=== PATIENT | female | born 1990 | race African-American/Black ===

== ENCOUNTER 2019-01-14 21:14 | Emergency (ER) | payer BC ==
[~2019-01-14] VITALS: Ht 162.6 cm; Wt 126.1 kg
[2019-01-14 23:19] LABS: BASO % 1 % (0-3); EOS # 0.2 x10^3/uL (0.0-0.7); EOS % 2 % (0-3); HEMATOCRIT 28.9 % (36.0-47.0); HEMOGLOBIN 8.7 g/dL (12.0-15.5); LYMPH # 2.4 x10^3/uL (1.0-4.8); LYMPH % 30 % (24-48); MEAN CORPUSCULAR HEMOGLOBIN 21 pg (25-35); MEAN CORPUSCULAR HGB CONC 30 g/dL (31-37); MEAN CORPUSCULAR VOLUME 68 fL (79-100); MONO # 0.8 x10^3/uL (0.0-1.1); MONO % 9 % (0-9); NEUT # 4.8 x10^3uL (1.8-7.7); NEUT % 59 % (31-73); PLATELET COUNT 238 x10^3/uL (140-400); RED BLOOD COUNT 4.24 x10^6/uL (3.50-5.40); RED CELL DISTRIBUTION WIDTH 19.8 % (11.5-14.5); WHITE BLOOD COUNT 8.2 x10^3/uL (4.0-11.0)
[2019-01-14 23:23] LABS: BILIRUBIN,URINE NEGATIVE (NEG); CLARITY,URINE CLEAR; COLOR,URINE YELLOW; NITRITE,URINE NEGATIVE (NEG); PROTEIN,URINE NEGATIVE (NEG-TRACE); UROBILINOGEN,URINE 0.2 mg/dL (0.2 mg/dL)
[2019-01-14 23:30] LABS: BACTERIA,URINE FEW /HPF (0-FEW); RBC,URINE 0 /HPF (0-2); SQUAMOUS EPITHELIAL CELL,UR FEW /LPF; WBC,URINE OCC /HPF (0-4); YEAST,URINE PRESENT /HPF
[2019-01-14 23:32] LABS: CALCIUM 8.7 mg/dL (8.5-10.1); CREATININE 0.6 mg/dL (0.6-1.0); GFR 145.1; POTASSIUM 3.5 mmol/L (3.5-5.1)
[2019-01-14 23:37] LABS: ALBUMIN 3.2 g/dL (3.4-5.0); ALBUMIN/GLOBULIN RATIO 0.8 (1.0-1.7); MAGNESIUM 1.9 mg/dL (1.8-2.4); TOTAL BILIRUBIN 0.2 mg/dL (0.2-1.0); TOTAL PROTEIN 7.2 g/dL (6.4-8.2)
[2019-01-14 23:39] LABS: PLT ESTIMATE ADEQUATE (ADEQUATE)
[2019-01-14 23:42] LABS: ANISOCYTOSIS SLIGHT; HYPOCHROMIA MOD; MICROCYTOSIS MARKED; OVALOCYTES OCC; SPHEROCYTES OCC; TEAR DROP CELLS OCC
[2019-01-14] MEDS: IV NORMAL SALINE 1000ML BAG 1,000 ML IV SCH (23:48)
[2019-01-14] MEDS: KETOROLAC 30 MG/ML VIAL. IV ONE (23:49)
--- NOTE | 2019-01-15 00:13 | PHYS DOC ---
Past Medical History Past Medical History: Other Additional Past Medical Histor: Myasthenia Gravis Past Surgical History: Alcohol Use: None Drug Use: Marijuana Adult General Chief Complaint Chief Complaint: CHEST PAIN HPI HPI Patient is a 28-year-old female who presents with complaint of left-sided chest pain that radiated into her left axilla. She describes pain as sharp and stabbing in nature. She indicates the pain gets a little bit worse with deep breathing. She states the pain started earlier this morning while she was at work and then had gone away. She states that upon getting home that the pain had recurred. She rates pain currently at a 5 out of 10 but states that at its worse it was an 8 out of 10. She does admit to a dry cough. Review of Systems Review of Systems Constitutional: Denies fever or chills [] Respiratory: Admits to cough and mild shortness of breath [] Cardiovascular: No additional information not addressed in HPI [] GI: Denies abdominal pain, nausea, vomiting or diarrhea [] Musculoskeletal: Denies back pain or joint pain [] Integument: Denies rash or skin lesions [] Neurologic: Denies headache, focal weakness or sensory changes [] All other systems were reviewed and found to be within normal limits, except as documented in this note. Current Medications Current Medications Current Medications Medications (Trade) Dose Ordered Sig/Claudette Start Time Stop Time Status Last Admin Dose Admin Info (CONTRAST GIVEN -- Rx MONITORING) 1 each PRN DAILY PRN 01/15/19 00:30 01/17/19 00:29 Iohexol (Omnipaque 350 Mg/ml) 100 ml 1X ONCE 01/15/19 00:30 01/15/19 00:31 DC 01/15/19 00:38 100 ML Ketorolac Tromethamine (Toradol 30mg Vial) 30 mg 1X ONCE 01/14/19 22:30 01/14/19 22:32 DC 01/14/19 23:49 30 MG Sodium Chloride 1,000 ml @ 1,000 mls/hr Q1H 01/14/19 22:30 01/14/19 23:29 DC 01/14/19 23:48 1,000 MLS/HR Allergies Allergies Allergies Coded Allergies Type Severity Reaction Last Updated Verified No Known Drug Allergies 01/14/19 No Physical Exam Physical Exam Constitutional: Well developed, well nourished, no acute distress, non-toxic appearance. [] HENT: Normocephalic, atraumatic, bilateral external ears normal, oropharynx moist, no oral exudates, nose normal. [] Eyes: PERRLA, EOMI, conjunctiva normal, no discharge. [] Neck: Normal range of motion, no tenderness, supple, no stridor. [] Cardiovascular: Regular rate and rhythm[] Lungs & Thorax: Bilateral breath sounds clear to auscultation [] Abdomen: Bowel sounds normal, soft, no tenderness. [] Skin: Warm, dry, no erythema, no rash. [] Extremities: No tenderness, no cyanosis, no clubbing, ROM intact. [] Neurologic: Alert and oriented X 3, no focal deficits noted. [] Current Patient Data Vital Signs Vital Signs Date Time Temp Pulse Resp B/P (MAP) Pulse Ox O2 Delivery O2 Flow Rate FiO2 01/15/19 00:37 72 18 118/48 (71) 100 Room Air 01/14/19 21:25 97.7 97.7 Lab Values Laboratory Tests Test 01/14/19 23:14 01/14/19 23:15 01/14/19 23:17 White Blood Count 8.2 x10^3/uL (4.0-11.0) Red Blood Count 4.24 x10^6/uL (3.50-5.40) Hemoglobin 8.7 g/dL (12.0-15.5) L Hematocrit 28.9 % (36.0-47.0) L Mean Corpuscular Volume 68 fL (79-100) L Mean Corpuscular Hemoglobin 21 pg (25-35) L Mean Corpuscular Hemoglobin Concent 30 g/dL (31-37) L Red Cell Distribution Width 19.8 % (11.5-14.5) H Platelet Count 238 x10^3/uL (140-400) Neutrophils (%) (Auto) 59 % (31-73) Lymphocytes (%) (Auto) 30 % (24-48) Monocytes (%) (Auto) 9 % (0-9) Eosinophils (%) (Auto) 2 % (0-3) Basophils (%) (Auto) 1 % (0-3) Neutrophils # (Auto) 4.8 x10^3uL (1.8-7.7) Lymphocytes # (Auto) 2.4 x10^3/uL (1.0-4.8) Monocytes # (Auto) 0.8 x10^3/uL (0.0-1.1) Eosinophils # (Auto) 0.2 x10^3/uL (0.0-0.7) Basophils # (Auto) 0.0 x10^3/uL (0.0-0.2) Platelet Estimate Adequate (ADEQUATE) Hypochromasia Mod Anisocytosis Slight Microcytosis Marked Spherocytes Occ Tear Drop Cells Occ Ovalocytes Occ D-Dimer (Juanita) 1.08 ug/mlFEU (0.00-0.50) H Sodium Level 141 mmol/L (136-145) Potassium Level 3.5 mmol/L (3.5-5.1) Chloride Level 103 mmol/L (98-107) Carbon Dioxide Level 31 mmol/L (21-32) Anion Gap 7 (6-14) Blood Urea Nitrogen 9 mg/dL (7-20) Creatinine 0.6 mg/dL (0.6-1.0) Estimated GFR (Cockcroft-Gault) 145.1 BUN/Creatinine Ratio 15 (6-20) Glucose Level 106 mg/dL (70-99) H Calcium Level 8.7 mg/dL (8.5-10.1) Magnesium Level 1.9 mg/dL (1.8-2.4) Total Bilirubin 0.2 mg/dL (0.2-1.0) Aspartate Amino Transferase (AST) 18 U/L (15-37) Alanine Aminotransferase (ALT) 24 U/L (14-59) Alkaline Phosphatase 63 U/L (46-116) Troponin I Quantitative < 0.017 ng/mL (0.000-0.055) RE-Npd-J-Type Natriuretic Peptide 50 pg/mL (0-124) Total Protein 7.2 g/dL (6.4-8.2) Albumin 3.2 g/dL (3.4-5.0) L Albumin/Globulin Ratio 0.8 (1.0-1.7) L Lipase 100 U/L (73-393) Urine Collection Type Unknown Urine Color Yellow Urine Clarity Clear Urine pH 6.0 Urine Specific Atkins 1.010 Urine Protein Negative mg/dL (NEG-TRACE) Urine Glucose (UA) Negative mg/dL (NEG) Urine Ketones (Stick) Negative mg/dL (NEG) Urine Blood Negative (NEG) Urine Nitrite Negative (NEG) Urine Bilirubin Negative (NEG) Urine Urobilinogen Dipstick 0.2 mg/dL (0.2 mg/dL) Urine Leukocyte Esterase Negative (NEG) Urine RBC 0 /HPF (0-2) Urine WBC Occ /HPF (0-4) Urine Squamous Epithelial Cells Few /LPF Urine Bacteria Few /HPF (0-FEW) Urine Mucus Slight /LPF Urine Yeast Present /HPF POC Urine HCG, Qualitative Hcg negative (Negative) Laboratory Tests 01/14/19 23:14 Laboratory Tests 01/14/19 23:14 EKG EKG [] Interpretation Time: EKG demonstrates normal sinus rhythm with rate of 61. Radiology/Procedures Radiology/Procedures [] Impressions: Chest x-ray demonstrates no acute process. PROCEDURE: CT ANGIOGRAPHY CHEST INDICATION: chest pain, eval for pe; Omni 350, 100ml COMPARISON: Chest x-ray from January 2013 TECHNIQUE: Axial CT images obtained through the chest. Intravenous contrast utilized. Angiogram 3D images processed per protocol. One or more of the following individualized dose reduction techniques were utilized for this examination: 1. Automated exposure control; 2. Adjustment of the mA and/or kV according to patient size; 3. Use of iterative reconstruction technique. FINDINGS: Some limitation secondary to motion. No evidence of pneumothorax. Mild dependent probable atelectasis. No focal airspace consolidation to suggest pneumonia. Soft tissue density anterior mediastinum which could be from residual thymus. A ascending thoracic aorta is obscured by motion and not evaluated. No aneurysm within the descending thoracic aorta. IMPRESSION: No central pulmonary embolus. Limited peripherally by motion. no definite evidence of pneumonia Electronically signed by: Kofi Abdul MD (01/15/2019 1:03 AM) [facility] Course & Med Decision Making Course & Med Decision Making Pertinent Labs and Imaging studies reviewed. (See chart for details) [] Dragon Disclaimer Dragon Disclaimer This electronic medical record was generated, in whole or in part, using a voice recognition dictation system. Departure Departure Impression: Primary Impression: Chest wall pain Disposition: 01 HOME, SELF-CARE Condition: STABLE Referrals: NO PCP (PCP) Patient Instructions: Chest Wall Pain Scripts Ketorolac Tromethamine (KETOROLAC TROMETHAMINE) 10 Mg Tablet 1 TAB PO PRN Q6HRS PRN for PAIN, #20 TAB Prov: MYRON LOPEZ Jr. DO 01/15/19 Tramadol Hcl (TRAMADOL HCL) 50 Mg Tablet 50 MG PO Q6HRS PRN for PAIN, #12 TAB Prov: MYRON LOPEZ Jr. DO 01/15/19 MYRON LOPEZ Jr. DO Jan 15, 2019 00:13
[2019-01-15] MEDS ORDERED: CONTRAST GIVEN. MC PRN (00:30)
[2019-01-15] MEDS: IOHEXOL 350 MG/ML 100 ML VIAL. IV ONE (00:38)
--- NOTE | 2019-01-15 01:06 | RAD ---
INDICATION: chest pain, eval for pe; Omni 350, 100ml COMPARISON: Chest x-ray from January 2013 TECHNIQUE: Axial CT images obtained through the chest. Intravenous contrast utilized. Angiogram 3D images processed per protocol. One or more of the following individualized dose reduction techniques were utilized for this examination: 1. Automated exposure control; 2. Adjustment of the mA and/or kV according to patient size; 3. Use of iterative reconstruction technique. FINDINGS: Some limitation secondary to motion. No evidence of pneumothorax. Mild dependent probable atelectasis. No focal airspace consolidation to suggest pneumonia. Soft tissue density anterior mediastinum which could be from residual thymus. A ascending thoracic aorta is obscured by motion and not evaluated. No aneurysm within the descending thoracic aorta. IMPRESSION: No central pulmonary embolus. Limited peripherally by motion. no definite evidence of pneumonia Electronically signed by: Kofi Abdul MD (01/15/2019 1:03 AM) [facility]
[2019-01-15 01:37] VITALS: BP 153/75
[2019-01-15] MEDS ORDERED: KETO10TA PO (01:45)
[2019-01-15] MEDS ORDERED: TRAM50TA PO (01:45)
--- NOTE | 2019-01-15 07:54 | RAD ---
PROCEDURE: PORTABLE CHEST 1V CLINICAL INDICATION: chest pain COMPARISON: None FINDINGS: No pneumothorax identified. Cardiac and mediastinal contours unremarkable. No pulmonary consolidation or acute airspace disease. No acute osseous abnormalities identified. IMPRESSION: No pulmonary consolidation or acute airspace disease. Electronically signed by: Miguel A Flores DO (01/15/2019 7:51 AM) [facility]
--- NOTE | 2019-01-15 08:38 | EKG ---
[facility] [address] [place] [address] Test Date: 2019-01-14 Test Time: 21:27:35 Pat Name: NANI BARRIENTOS Department: Room: Gender: F Ab Initio Etl Developer: : 1990 Requested By: MYRON LOPEZ Order Number: [id number] Reading MD: Barrie Kearney MD Measurements Intervals [place] Rate: 61 P: 23 NV: 178 QRS: 31 QRSD: 72 T: 26 QT: 412 QTc: 420 Interpretive Statements SINUS RHYTHM Electronically Signed On 01-15-2019 17:30:16 CDT by Barrie Kearney MD
== END 2019-01-15 01:49 | disposition home or self-care (01) ==
LOC: ER 21:14
DX: R07.89 Other chest pain (principal); R05 Cough; R06.02 Shortness of breath; Z98.890 Other specified postprocedural states
CPT/HCPCS: 36415; 71045; 71275; 80053; 81001; 81025; 83690; 83735; 83880; 84484; 85025; 85379; 93005; 96374; 99284; J1885; J7030; Q9967